=== PATIENT | female | born 1995 | race Caucasian/White ===

== ENCOUNTER 2020-04-22 05:45 | Emergency (ER) | payer BC ==
[2020-04-22] MEDS ORDERED: Sodium Chloride 0.9% 1,000 ML ONE (05:51)
[2020-04-22] MEDS ORDERED: Ondansetron 4 MG/2 ML SDV ONE (05:51)
[2020-04-22] MEDS ORDERED: Sodium Chloride 0.9% 1,000 ML IV ONE ×2 (06:12→07:16)
[2020-04-22] MEDS ORDERED: Ondansetron 4 MG/2 ML SDV IVPUSH ONE ×2 (06:12→07:16)
--- NOTE | 2020-04-22 06:27 | EDM.PDOC ---
ED HPI GENERAL MEDICAL PROBLEM - General Chief Complaint: Gastrointestinal Problem Stated Complaint: Vomiting Time Seen by Provider: 04/22/20 06:17 Source of Information: Reports: Patient History Limitations: Reports: No Limitations - History of Present Illness INITIAL COMMENTS - FREE TEXT/NARRATIVE: Patient presents with vomiting many times in last 12 hours, starting 1700 last night. She also had body aches during the night. No fever or diarrhea. The last 4 days she has had no appetite and a migraine headache. She gets migraines often. She has not had much to eat or drink recently and now has a little burning with scant urine output. Headache Pain Score (Numeric/FACES): 5 - Related Data Allergies Allergy/AdvReac Type Severity Reaction Status Date / Time No Known Allergies Allergy Verified 04/22/20 07:14 Home Meds: Home Meds . [No Known Home Meds] 07/08/16 [History] Past Medical History Neurological History: Reports: Migraines Psychiatric History: Reports: Anxiety, Depression - Past Surgical History HEENT Surgical History: Reports: Oral Surgery Female Surgical History: Reports: Section ED ROS GENERAL - Review of Systems Review Of Systems: See Below Constitutional: Reports: Chills, Malaise, Decreased Appetite. Denies: Fever HEENT: Denies: Ear Pain, Throat Pain, Vision Change Respiratory: Denies: Shortness of Breath, Cough Cardiovascular: Denies: Chest Pain, Lightheadedness, Syncope GI/Abdominal: Reports: Nausea, Vomiting. Denies: Abdominal Pain, Constipation, Diarrhea : Reports: Dysuria. Denies: Flank Pain Musculoskeletal: Reports: Other (general aches) Skin: Denies: Cyanosis, Jaundice, Mottled, Pallor, Diaphoresis Neurological: Denies: Confusion, Dizziness, Headache, Seizure, Syncope, Trouble Speaking, Difficulty Walking Psychiatric: Denies: Agitation, Anxiety, Confusion ED EXAM, GI/ABD - Physical Exam Exam: See Below Exam Limited By: No Limitations General Appearance: Alert, WD/WN, No Apparent Distress Eyes: Bilateral: Normal Appearance, EOMI Ears: Normal External Exam, Hearing Grossly Normal Nose: Normal Inspection, No Blood Throat/Mouth: Normal Inspection, Normal Voice, No Airway Compromise Head: Atraumatic, Normocephalic Neck: Normal Inspection, Full Range of Motion Respiratory/Chest: No Respiratory Distress, Lungs Clear, Normal Breath Sounds, No Accessory Muscle Use Cardiovascular: Regular Rate, Rhythm, No Murmur GI/Abdominal Exam: Normal Bowel Sounds, Soft, Non-Tender, No Organomegaly, No Distention, No Abnormal Bruit, No Mass Back Exam: Normal Inspection, Full Range of Motion. No: CVA Tenderness (L), CVA Tenderness (R) Extremities: Normal Inspection, Normal Range of Motion Neurological: Alert, Oriented, Normal Cognition, No Motor/Sensory Deficits Psychiatric: Normal Affect, Normal Mood Skin Exam: Warm, Dry, Intact, Normal Color, No Rash Course - Vital Signs Last Recorded V/S: Last Vital Signs Temp 100.1 F 04/22/20 07:14 Pulse 97 04/22/20 06:42 Resp 20 04/22/20 06:42 BP 113/78 04/22/20 06:42 Pulse Ox 98 04/22/20 06:42 - Orders/Labs/Meds Orders: Active Orders 24 hr Category Date Time Status CORONAVIRUS COVID-19 PCR PHL Routine Lab 04/22/20 06:00 Received Sodium Chloride 0.9% @ 999 MLS/HR (1000ml) Med 04/22/20 07:16 Ordered Sodium Chloride 0.9% [Normal Saline] 1,000 ml IV .BOLUS Medication Orders Sodium Chloride (Normal Saline) 1,000 mls @ 999 mls/hr IV .BOLUS ONE Stop: 04/22/20 08:16 Last Admin: 04/22/20 07:23 Dose: 999 mls/hr Documented by: SOPHIE Labs: Laboratory Tests 04/22/20 04/22/20 04/22/20 Range/Units 06:05 06:20 06:20 WBC 10.58 H (5.00-10.00) 10^3/uL RBC 4.78 (3.80-5.50) 10^6/uL Hgb 13.5 (12.0-16.0) g/dL Hct 38.8 (37.0-47.0) % MCV 81.2 L D (82.0-92.0) fL MCH 28.2 (27.0-31.0) pg MCHC 34.8 (32.0-36.0) g/dL RDW 13.8 (11.5-14.5) % Plt Count 224 (150-400) 10^3/uL MPV 10.9 H (7.4-10.4) fL Immature Gran % (Auto) 0.2 (0.0-5.0) % Neut % (Auto) 87.7 H (50.0-70.0) % Lymph % (Auto) 6.3 L (20.0-40.0) % [place] % (Auto) 5.6 (2.0-8.0) % Eos % (Auto) 0.0 L (1.0-3.0) % Baso % (Auto) 0.2 (0.0-1.0) % Neut # (Auto) 9.28 H (2.50-7.00) 10^3/uL Lymph # (Auto) 0.67 L (1.00-4.00) 10^3/uL [place] # (Auto) 0.59 (0.10-0.80) 10^3/uL Eos # (Auto) 0.00 L (0.10-0.30) 10^3/uL Baso # (Auto) 0.02 (0.00-0.10) 10^3/uL Immature Gran # (Auto) 0.02 (0.00-0.50) 10^3/uL Sodium 137 (136-145) mmol/L Potassium 3.4 L (3.5-5.1) mmol/L Chloride 99 (98-107) mmol/L Carbon Dioxide 28.4 (21.0-32.0) mmol/L Anion Gap 13.0 (5-15) mmol/L BUN 8 (7-18) mg/dL Creatinine 0.69 (0.51-1.17) mg/dL Est Cr Clr Drug Dosing 117.69 mL/min Estimated GFR (MDRD) > 60 mL/min Glucose 122 (70-140) mg/dL Calcium 9.5 (8.7-10.3) mg/dL Total Bilirubin 0.5 (0.2-1.0) mg/dL AST 12 L (15-37) U/L ALT 16 (14-63) U/L Alkaline Phosphatase 78 (46-116) U/L Total Protein 7.5 (6.4-8.2) g/dL Albumin 4.19 (3.40-5.00) g/dL Specimen Type Urinblad Urine Color Yellow (YELLOW) Urine Appearance Slightly cloudy H (CLEAR) Urine pH 6.5 (5.0-9.0) Ur Specific [place] 1.025 (1.005-1.030) Urine Protein 100 H (NEGATIVE) mg/dL Urine Glucose (UA) Negative (NEGATIVE) mg/dL Urine Ketones >=160 H (NEGATIVE) mg/dL Urine Occult Blood Small H (NEGATIVE) Urine Nitrite Negative (NEGATIVE) Urine Bilirubin Moderate H (NEGATIVE) Urine Urobilinogen 1.0 (0.2-1.0) E.U./dL Ur Leukocyte Esterase Trace H (NEGATIVE) Urine RBC 5-10 H (0-5) /HPF Urine WBC 10-20 H (0-5) /HPF Ur Epithelial Cells Moderate H /LPF Urine Bacteria Few (NONE TO FEW) /HPF Urine Mucus Rare H (NEGATIVE) /LPF Meds: Medications Generic Name Dose Route Start Last Admin Trade Name Freq PRN Reason Stop Dose Admin Sodium Chloride 1,000 mls @ 999 mls/hr 04/22/20 07:16 04/22/20 07:23 Normal Saline IV 04/22/20 08:16 999 mls/hr .BOLUS ONE Administration Discontinued Medications Generic Name Dose Route Start Last Admin Trade Name Freq PRN Reason Stop Dose Admin Sodium Chloride Confirm 04/22/20 05:51 04/22/20 06:33 Normal Saline Administered 04/22/20 05:52 Not Given Dose 1,000 mls @ as directed .ROUTE .STK-MED ONE Sodium Chloride 1,000 mls @ 999 mls/hr 04/22/20 06:12 04/22/20 06:15 Normal Saline IV 04/22/20 07:12 999 mls/hr .BOLUS ONE Administration Ondansetron HCl Confirm 04/22/20 05:51 04/22/20 06:33 Zofran Administered 04/22/20 05:52 Not Given Dose 4 mg .ROUTE .STK-MED ONE Ondansetron HCl 4 mg 04/22/20 06:12 04/22/20 06:15 Zofran IVPUSH 04/22/20 06:13 4 mg ONETIME ONE Administration Ondansetron HCl 4 mg 04/22/20 07:16 Zofran IVPUSH 04/22/20 07:17 ONETIME ONE - Re-Assessments/Exams Free Text/Narrative Re-Assessment/Exam: 04/22/20 07:17 Labs indicate dehydration but mostly okay. She is feeling better after a liter of fluids and Zofran. Her headache is nearly gone. With her dehydration will give another liter of fluids and Zofran 4 mg before she leaves. Covid test is pending but I feel unlikely as cause. Discussed findings and treatment plan. Gave a Rx for Zofran 4 mg ODT #20, 1 po tid prn n/v. She will home quarantine until covid test is resulted. Work note for next 3 shifts given. Departure - Departure Time of Disposition: 08:30 Disposition: Home, Self-Care 01 Condition: Good Clinical Impression: Dehydration N&V (nausea and vomiting) Qualifiers: Vomiting type: unspecified Vomiting Intractability: unspecified Qualified Code(s): R11.2 - Nausea with vomiting, unspecified Migraine Qualifiers: Migraine type: unspecified Status migrainosus presence: without status migrainosus Intractability: not intractable Qualified Code(s): G43.909 - Migraine, unspecified, not intractable, without status migrainosus - Discharge Information Instructions: Dehydration, Adult, [id number] Forms: ED Department Discharge Additional Instructions: Try to drink 8 cups of water daily. Use the Zofran as directed to control nausea as needed. Quarantine at home until you get the results from the Covid test. Follow up with your PCP if worsening or not improving as expected. Return to ER as needed for significant worsening. Sepsis Event Note (ED) - Focused Exam Vital Signs: Vital Signs Temp Pulse Resp BP BP Pulse Ox 04/22/20 07:14 100.1 F 04/22/20 06:42 99.7 F 97 20 113/78 98 04/22/20 06:00 98.4 F 82 20 125/79 96 - My Orders Last 24 Hours: My Active Orders 04/22/20 06:00 CORONAVIRUS COVID-19 PCR PHL Routine 04/22/20 07:16 Sodium Chloride 0.9% @ 999 MLS/HR (1000ml) Sodium Chloride 0.9% [Normal Saline] 1,000 ml IV .BOLUS - Assessment/Plan Last 24 Hours: My Active Orders 04/22/20 06:00 CORONAVIRUS COVID-19 PCR PHL Routine 04/22/20 07:16 Sodium Chloride 0.9% @ 999 MLS/HR (1000ml) Sodium Chloride 0.9% [Normal Saline] 1,000 ml IV .BOLUS
[2020-04-22 06:53] LABS: CHLORIDE,CL 99 mmol/L (98-107); SODIUM,NA 137 mmol/L (136-145)
[2020-04-22 08:20] VITALS: BP 122/81; PULSE 76
== END 2020-04-22 08:25 | disposition home or self-care (01) ==
LOC: KA.ED 05:45
DX: E86.0 Dehydration (principal); R11.2 Nausea with vomiting, unspecified; G43.909 Migraine, unspecified, not intractable, without status migrainosus
CPT/HCPCS: 80053; 81001; 85025; 96374; 96376; 99284; 99284-25; J2405; J7030; U0002

== ENCOUNTER 2020-06-05 10:57 | Observation (INO) | payer BC ==
[2020-06-05] MEDS ORDERED: Dextrose 5%-0.45% NaCl 1,000 ML IV SCH (12:00)
[2020-06-05 12:13] LABS: CHLORIDE,CL 98 mmol/L (98-107); SODIUM,NA 136 mmol/L (136-145)
[2020-06-05] MEDS ORDERED: Sodium Chloride 0.9% 10 ML Syringe FLUSH PRN (12:37)
[2020-06-05] MEDS ORDERED: Promethazine 12.5 MG in Sodium Chloride 0.9% 50 ML IV PRN (12:37)
[2020-06-05] MEDS ORDERED: MVI, Adult with Vitamin K 10 ML, Folic Acid 1 MG, Thiamine 100 MG in D5 1/2 NS w/ 20 mE... IV ONE ×8 (12:46→19:00)
[2020-06-05] MEDS ORDERED: Lactated Ringers 1,000 ML IV SCH (13:00)
[2020-06-05] MEDS: PROMETHAZINE PLO TOP PRN (15:57)
[2020-06-05] MEDS: Lactated Ringers 1,000 ML IV SCH (21:17)
[2020-06-06] MEDS: PROMETHAZINE PLO TOP PRN (03:47)
[2020-06-06] MEDS: Lactated Ringers 1,000 ML IV SCH ×3 (04:03→18:08)
[2020-06-06 08:15] LABS: ANION GAP 14.4 mmol/L (5-15); CHLORIDE,CL 104 mmol/L (98-107); SODIUM,NA 140 mmol/L (136-145)
[2020-06-06] MEDS: Ondansetron 4 MG/2 ML SDV IVPUSH SCH ×2 (10:50→18:08)
[2020-06-07] MEDS: Lactated Ringers 1,000 ML IV SCH ×2 (00:53→07:30)
[2020-06-07] MEDS: Ondansetron 4 MG/2 ML SDV IVPUSH SCH ×2 (02:01→10:41)
[2020-06-07 06:26] VITALS: BP 101/60; PULSE 68
[2020-06-07 08:16] LABS: ANION GAP 14.7 mmol/L (5-15); CHLORIDE,CL 105 mmol/L (98-107); SODIUM,NA 142 mmol/L (136-145)
--- NOTE | 2020-06-07 10:31 | PCM.DCSUM1 ---
Discharge Summary - Hospital Course Free Text/Narrative:: Admission Date: 06/05/2020 Discharge Date: 06/07/2020 Disposition: Home/Self Care Admission Diagnoses: Hyperemesis Gravidarum at 8 weeks gestation by LMP Hyperkalemia Discharge Diagnoses: Hyperemesis Gravidarum at 8 weeks gestation by LMP Hyperkalemia, resolved. New Meds at Discharge: Ondansetron ODT 4 mg PO q 6 hours PRN N/V - This was sent through her outpatient clinic chart to [facility] at her request. CODE STATUS: Full Code Hospital Course: Milagros is a 8 week female who presented to the clinic on 06/02 with a 2 week hx of nausea and vomiting. She is 8 weeks into her . She has not had this with her prior two pregnancies. She had lost 25 pounds secondary to N/V. She was given 2L of NS as an outpatient with ondansetron 4 mg IV x 1 dose and discharged to home with Unisom and vitamin B6. She continued to have N/V and presented again to the clinic on 06/05 having lost an additional 3 pounds. She was admitted observation for fluids and antinausea meds. Consultation was made with LIFESTYLE DIRECTOR who recommended a Banana bag as well as LR for IVF's. They also suggested phenergan, which she was given without any relief of her N/V, If was felt the the benefits of ondansetron outweighed the risks to the fetus and thus she was placed on ondansetron with improvement in her N/V and ability to eat and drink. She desires to be discharged today. Of note, she did have hyperkalemia secondary to her vomiting and this was replaced with KCl 20 mEq PO x 1 on 06/06/2020. Follow-up in 1 week in the clinic. Follow-up with LIFESTYLE DIRECTOR when you are at 10 weeks gestation per their recommendation. Diagnosis: Stroke: No Modified [place] Scale: No Signif.Disability Despite Sympt.Able to Carry Out Usual Act./Duties Modified [place] Scale Score: 1 - Discharge Data Discharge Date: 06/07/20 Discharge Disposition: Home, Self-Care 01 Condition: Good - Referral to Home Health Primary Care Physician: Britney Rawls PA-C - Patient Summary/Data Consults: Consultations 06/06/20 09:23 Consult to Dietary [Consult to [employer] Programmer] [CONS] Routine - Patient Instructions Diet: Usual Diet as Tolerated - Discharge Plan *PRESCRIPTION DRUG MONITORING PROGRAM REVIEWED*: Not Applicable *COPY OF PRESCRIPTION DRUG MONITORING REPORT IN PATIENT BRADY: Not Applicable Home Medications: Home Meds . [No Known Home Meds] 07/08/16 [History] - Discharge Summary/Plan Comment DC Time >30 min.: No - Patient Data Vitals - Most Recent: Last Vital Signs Temp 98.4 F 06/07/20 06:25 Pulse 68 06/07/20 06:25 Resp 16 06/07/20 06:25 BP 101/60 06/07/20 06:25 Pulse Ox 98 06/07/20 06:25 Weight - Most Recent: 120 lb I&O - Last 24 hours: Intake & Output 06/06/20 06/07/20 06/07/20 22:59 06:59 14:59 Intake Total 575 2505 Balance 575 2505 Lab Results - Last 24 hrs: Laboratory Results - last 24 hr 06/07/20 06/07/20 Range/Units 07:50 07:50 WBC 8.20 (5.00-10.00) 10^3/uL RBC 4.14 (3.80-5.50) 10^6/uL Hgb 12.0 (12.0-16.0) g/dL Hct 34.2 L (37.0-47.0) % MCV 82.6 (82.0-92.0) fL MCH 29.0 (27.0-31.0) pg MCHC 35.1 (32.0-36.0) g/dL RDW 14.8 H (11.5-14.5) % Plt Count 210 (150-400) 10^3/uL MPV 11.0 H (7.4-10.4) fL Immature Gran % (Auto) 0.1 (0.0-5.0) % Neut % (Auto) 66.0 (50.0-70.0) % Lymph % (Auto) 25.5 (20.0-40.0) % [place] % (Auto) 7.2 (2.0-8.0) % Eos % (Auto) 1.0 (1.0-3.0) % Baso % (Auto) 0.2 (0.0-1.0) % Neut # (Auto) 5.41 (2.50-7.00) 10^3/uL Lymph # (Auto) 2.09 (1.00-4.00) 10^3/uL [place] # (Auto) 0.59 (0.10-0.80) 10^3/uL Eos # (Auto) 0.08 L (0.10-0.30) 10^3/uL Baso # (Auto) 0.02 (0.00-0.10) 10^3/uL Immature Gran # (Auto) 0.01 (0.00-0.50) 10^3/uL Sodium 142 (136-145) mmol/L Potassium 3.5 (3.5-5.1) mmol/L Chloride 105 (98-107) mmol/L Carbon Dioxide 25.8 (21.0-32.0) mmol/L Anion Gap 14.7 (5-15) mmol/L BUN 3 L (7-18) mg/dL Creatinine 0.54 (0.51-1.17) mg/dL Est Cr Clr Drug Dosing 138.04 mL/min Estimated GFR (MDRD) > 60 mL/min Glucose 80 (70-140) mg/dL Calcium 8.3 L (8.7-10.3) mg/dL Total Bilirubin 0.3 (0.2-1.0) mg/dL AST 11 L (15-37) U/L ALT 21 (14-63) U/L Alkaline Phosphatase 39 L (46-116) U/L Total Protein 5.6 L (6.4-8.2) g/dL Albumin 3.08 L (3.40-5.00) g/dL Med Orders - Current: Current Medications Lactated Ringer's (Ringers, Lactated) 1,000 mls @ 150 mls/hr IV ASDIRECTED [facility] Last Admin: 06/07/20 07:30 Dose: 150 mls/hr Documented by: Ondansetron HCl (Ondansetron 4 Mg/2 Ml Sdv) 4 mg IVPUSH Q8H [facility] Last Admin: 06/07/20 02:01 Dose: 4 mg Documented by: Poloxamer (Promethazine Plo Gel 25mg/0.4ml Syringe) 0.4 ml TOP Q6H PRN PRN Reason: Nausea/Vomiting Last Admin: 06/06/20 03:47 Dose: 0.4 ml Documented by: Sodium Chloride (Sodium Chloride 0.9% 10 Ml Syringe) 10 ml FLUSH Q8HR PRN PRN Reason: keep vein open Discontinued Medications Dextrose/Sodium Chloride (Dextrose 5%-1/2 Ns) 1,000 mls @ 150 mls/hr IV ASDIRECTED [facility] Last Admin: 06/05/20 12:06 Dose: 150 mls/hr Documented by: Multivitamins/Minerals 10 ml/Folic Acid 1 mg/ Thiamine HCl 100 mg/ Potassium Chloride/Dextrose/Sod Cl 1,011.2 mls @ 404.48 mls/hr IV ONETIME ONE Stop: 06/05/20 15:15 Last Admin: 06/05/20 13:52 Dose: Not Given Documented by: Lactated Ringer's (Ringers, Lactated) 1,000 mls @ 150 mls/hr IV ASDIRECTED [facility] Multivitamins/Minerals 10 ml/Folic Acid 1 mg/ Thiamine HCl 100 mg/ Potassium Chloride/Dextrose/Sod Cl 1,011.2 mls @ 404.48 mls/hr IV ONETIME ONE Stop: 06/05/20 21:29 Last Admin: 06/05/20 18:35 Dose: 404.48 mls/hr Documented by: - Exam General: Reports: Alert, Oriented, Cooperative, No Acute Distress Lungs: Reports: Clear to Auscultation, Normal Respiratory Effort Cardiovascular: Reports: Regular Rate, Regular Rhythm, No Murmurs GI/Abdominal Exam: Normal Bowel Sounds Psy/Mental Status: Reports: Other (Flat affect)
--- NOTE | 2020-06-10 12:06 | PN ---
06/06/2020 PATIENT NAME: DANIEL VILLAGOMEZ SUBJECTIVE: This is a 24-year-old female who was admitted to the hospital yesterday with hyperemesis gravidarum. She received topical Phenergan which she does not feel has been very effective. I had talked to Dr. Garner, the hospitalist prior to admission. He recommended Phenergan. He stated that Zofran is not recommended due to ventricular septal defect. However, if the nausea is not improved with other medication, Zofran can be used. The patient has received a liter of normal saline. She also received a banana bag, and then the IV fluids were switched to lactated Ringer. The patient is feeling a little bit better today. She actually was able to get in the shower this morning. She was also able to eat a little bit of her breakfast. PERTINENT LABS: Her hemoglobin went from 14.6 to 12.6, I believe this is most likely due to dilutional change. Comprehensive metabolic panel was basically normal. However, her total protein is low which is due to poor nutritional status. She has lost 28 pounds since she became . OBJECTIVE: VITAL SIGNS: Temp is 98.1, pulse is 70, respirations 18, blood pressure 107/73, O2 saturation is 98% on room air. SKIN: Warm and somewhat pale. CARDIAC: Reveals S1, S2 to be normal. Rate and rhythm are regular. No murmur, click, or gallop is auscultated. LUNGS: Clear without rales, wheezes, or rhonchi. ABDOMEN: Soft, scaphoid. heart tones are not auscultated, however. Beta hCG which was drawn on the day of her admission was 164,900. This corresponds to 8 weeks of . IMPRESSION: Hyperemesis gravidarum. PLAN: We will continue with the IV fluids of lactated Ringer's. We will change her antiemetic to Zofran rather than Phenergan. Dr. Sethi will see her tomorrow at noon, most likely discharge her from the hospital. /[id number]/MODL MTDD
== END 2020-06-07 11:10 | disposition home or self-care (01) ==
LOC: KA.OC 10:57 → KA.MS 11:42 → UNDOADMOB 11:42 → KA.MS 12:38
DX: O21.0 Mild hyperemesis gravidarum (principal); O26.891 Other specified pregnancy related conditions, first trimester; E87.5 Hyperkalemia; R63.4 Abnormal weight loss; Z01.812 Encounter for preprocedural laboratory examination; Z20.822 Contact with and (suspected) exposure to COVID-19; Z3A.08 8 weeks gestation of pregnancy
CPT/HCPCS: 36415; 80053; 81001; 85025; 96365; 96366; 96375; 96376; A9270-GY; G0378; J2405; J3411; J3480; J3490; J7042; J7120; U0002

== ENCOUNTER 2022-08-17 20:56 | Emergency (ER) | payer BC ==
[2022-08-17 21:16] VITALS: BP 141/94; PULSE 77
[2022-08-17] MEDS ORDERED: Cyclobenzaprine 10 MG Tab PO ONE (21:24)
[2022-08-17] MEDS ORDERED: Ketorolac 30 MG/ML SDV IM ONE (21:24)
== END 2022-08-17 21:40 | disposition home or self-care (01) ==
LOC: KA.ED 20:56
DX: M43.6 Torticollis (principal)
CPT/HCPCS: 96372; 99283; A9270-GY; J1885

== ENCOUNTER 2022-12-06 07:33 | Emergency (ER) | payer BC ==
[2022-12-06] MEDS: Acetaminophen 500 MG Tab PO ONE (07:55)
[2022-12-06 07:56] LABS: BASOPHILS ABSOLUTE AUTO 0.04 10^3/uL (0.00-0.10); BASOPHILS PERCENT AUTO 0.3 % (0.0-1.0); EOSINOPHILS ABSOLUTE AUTO 0.01 10^3/uL (0.10-0.30); EOSINOPHILS PERCENT AUTO 0.1 % (1.0-3.0); HEMOGLOBIN 13.3 g/dL (12.0-16.0); IMMATURE GRAN ABSOLUTE AUTO 0.02 10^3/uL (0.00-0.50); IMMATURE GRAN PERCENT AUTO 0.2 % (0.0-5.0); LYMPHOCYTES ABSOLUTE AUTO 1.05 10^3/uL (1.00-4.00); LYMPHOCYTES PERCENT AUTO 7.9 % (20.0-40.0); MEAN CORPUSCULAR HEMOGLOBIN 27.4 pg (27.0-31.0); MEAN CORPUSCULAR HGB CONC 34.1 g/dL (32.0-36.0); MEAN CORPUSCULAR VOLUME 80.4 fL (82.0-92.0); MEAN PLATELET VOLUME 11.3 fL (7.4-10.4); MONOCYTES ABSOLUTE AUTO 1.34 10^3/uL (0.10-0.80); MONOCYTES PERCENT AUTO 10.1 % (2.0-8.0); NEUTROPHILS ABSOLUTE AUTO 10.87 10^3/uL (2.50-7.00); NEUTROPHILS PERCENT AUTO 81.4 % (50.0-70.0); PLATELET COUNT,PLT 153 10^3/uL (150-400); RED BLOOD CELL COUNT 4.85 10^6/uL (3.80-5.50); RED CELL DISTRIBUTION WIDTH 12.4 % (11.5-14.5); WHITE BLOOD CELL COUNT,WBC 13.33 10^3/uL (5.00-10.00)
[2022-12-06] MEDS: Sodium Chloride 0.9% 1,000 ML IV ONE (07:56)
[2022-12-06] MEDS: Ondansetron 4 MG/2 ML SDV IVPUSH ONE (07:56)
[2022-12-06 07:58] LABS: APPEARANCE,URINE CLOUDY (CLEAR); BILIRUBIN,URINE NEGATIVE (NEGATIVE); COLOR,URINE YELLOW (YELLOW); GLUCOSE,URINE NEGATIVE (NEGATIVE); KETONES,URINE TRACE mg/dL (NEGATIVE); LEUKOCYTE ESTERASE,URINE SMALL (NEGATIVE); NITRITE,URINE POSITIVE (NEGATIVE); OCCULT BLOOD,URINE TRACE-LYSED (NEGATIVE); PROTEIN,URINE 100 mg/dL (NEGATIVE); UROBILINOGEN,URINE 0.2 E.U./dL (0.2-1.0)
[2022-12-06 08:06] LABS: BACTERIA,URINE MANY /HPF (NONE TO FEW); EPITHELIAL CELLS,URINE FEW /LPF; RBC,URINE 0-5 /HPF (0-5)
[2022-12-06 08:12] LABS: ANION GAP 15.2 mmol/L (5-15); CALCIUM 9.1 mg/dL (8.7-10.3); CARBON DIOXIDE,CO2 24.8 mmol/L (21.0-32.0); CREATININE 0.82 mg/dL (0.51-1.17); EST CRCL DRUG DOSING (CG) 86.34 mL/min
[2022-12-06] MEDS: cefTRIAXone 1 GM Vial IVPUSH ONE (08:34)
[2022-12-06] MEDS: cefTRIAXone 1 GM Vial ONE (08:34)
[2022-12-06 09:16] VITALS: BP 128/78; PULSE 86
== END 2022-12-06 09:06 | disposition home or self-care (01) ==
LOC: KA.ED 07:33
DX: N39.0 Urinary tract infection, site not specified (principal)
CPT/HCPCS: 80048; 81001; 83605; 85025; 96361; 96374; 96375; 99283; A9270; J0696; J2405; J7030

== ENCOUNTER 2023-07-07 16:42 | Emergency (ER) | payer BC, MEDICAID ==
[2023-07-07 18:17] LABS: BASOPHILS ABSOLUTE AUTO 0.03 10^3/uL (0.00-0.10); BASOPHILS PERCENT AUTO 0.3 % (0.0-1.0); EOSINOPHILS ABSOLUTE AUTO 0.02 10^3/uL (0.10-0.30); EOSINOPHILS PERCENT AUTO 0.2 % (1.0-3.0); HEMATOCRIT 38.3 % (37.0-47.0); HEMOGLOBIN 12.9 g/dL (12.0-16.0); IMMATURE GRAN ABSOLUTE AUTO 0.02 10^3/uL (0.00-0.50); IMMATURE GRAN PERCENT AUTO 0.2 % (0.0-5.0); LYMPHOCYTES ABSOLUTE AUTO 1.28 10^3/uL (1.00-4.00); LYMPHOCYTES PERCENT AUTO 12.4 % (20.0-40.0); MEAN CORPUSCULAR HEMOGLOBIN 27.2 pg (27.0-31.0); MEAN CORPUSCULAR HGB CONC 33.7 g/dL (32.0-36.0); MEAN CORPUSCULAR VOLUME 80.8 fL (82.0-92.0); MEAN PLATELET VOLUME 10.1 fL (7.4-10.4); MONOCYTES ABSOLUTE AUTO 0.89 10^3/uL (0.10-0.80); MONOCYTES PERCENT AUTO 8.6 % (2.0-8.0); NEUTROPHILS PERCENT AUTO 78.3 % (50.0-70.0); PLATELET COUNT,PLT 193 10^3/uL (150-400); RED BLOOD CELL COUNT 4.74 10^6/uL (3.80-5.50); RED CELL DISTRIBUTION WIDTH 13.5 % (11.5-14.5); WHITE BLOOD CELL COUNT,WBC 10.34 10^3/uL (5.00-10.00)
[2023-07-07 18:35] LABS: ALBUMIN 3.6 g/dL (3.40-5.00); ANION GAP 12.5 mmol/L (5-15); BILIRUBIN TOTAL 0.7 mg/dL (0.2-1.0); CARBON DIOXIDE,CO2 30.3 mmol/L (21.0-32.0); CREATININE 0.67 mg/dL (0.51-1.17); EST CRCL DRUG DOSING (CG) 99.35 mL/min; POTASSIUM,K 2.8 mmol/L (3.5-5.1); PROTEIN TOTAL,TP 7.7 g/dL (6.4-8.2)
[2023-07-07] MEDS: NS with KCl 40mEq 1,000 ML IV SCH (19:14)
[2023-07-07] MEDS: Sodium Chloride 0.9% 1,000 ML IV ONE (19:16)
[2023-07-07] MEDS: Potassium Chloride 20 MEQ Tab.ER PO ONE (20:12)
[2023-07-07 23:32] LABS: ANION GAP 12.4 mmol/L (5-15); CALCIUM 8.4 mg/dL (8.7-10.3); CARBON DIOXIDE,CO2 27.9 mmol/L (21.0-32.0); CREATININE 0.57 mg/dL (0.51-1.17); EST CRCL DRUG DOSING (CG) 116.77 mL/min; POTASSIUM,K 4.3 mmol/L (3.5-5.1)
[2023-07-07 23:45] VITALS: BP 116/86; PULSE 79
== END 2023-07-07 23:50 | disposition home or self-care (01) ==
LOC: KA.ED 16:42
DX: E86.0 Dehydration (principal); E87.6 Hypokalemia; R63.0 Anorexia; Z79.899 Other long term (current) drug therapy
CPT/HCPCS: 36415; 80048; 80053; 85025; 96365; 96366; 99284-25; A9270-GY; J3480